=== PATIENT | female | born 1985 | race Hispanic/Latino ===

== ENCOUNTER 2020-03-04 08:00 | Observation (INO) | payer BC ==
[~2020-03-04] VITALS: Ht 165.1 cm; Wt 85.8 kg
[2020-03-10 13:08] LABS: BASOPHILS % (AUTO) 0.4 % (0.0-5.0); EOSINOPHILS % (AUTO) 0.9 % (0.0-8.0); HEMATOCRIT 42.3 % (36-48); LYMPHOCYTES % (AUTO) 26.9 % (21.0-51.0); MEAN CORPUSCULAR HEMOGLOBIN 28.8 pg (27.0-33.0); MEAN CORPUSCULAR HGB CONC 31.9 g/dL (32.0-36.0); MEAN CORPUSCULAR VOLUME 90.2 fL (79-99); MONOCYTES % (AUTO) 6.2 % (3.0-13.0); NEUTROPHILS % (AUTO) 65.4 % (40.0-77.0); PLATELET COUNT (AUTO) 267 K/uL (130-400); RED BLOOD CELL COUNT(AUTO) 4.69 MIL/uL (4.00-5.50); RED CELL DISTRIBUTION WIDTH 13.2 % (11.0-15.5); WHITE BLOOD COUNT (AUTO) 8.1 K/uL (4.8-10.8)
[2020-03-10 14:27] VITALS: BP 113/79
[2020-03-11] VITALS (24 sets, daily range): BP systolic 107–149; BP diastolic 66–92
[2020-03-11] MEDS ORDERED: LACTATED RINGERS 1000ML 1,000 ML IV ONE (05:56)
[2020-03-11] MEDS ORDERED: MIDAZOLAM HCL 1 MG/ML 2ML VIAL ONE (06:18)
[2020-03-11] MEDS ORDERED: ROCURONIUM 10MG/1ML SYR 10 MG/ML ML ONE (06:22)
[2020-03-11] MEDS ORDERED: PROPOFOL 10 MG/ML 20ML VIAL IV ONE (06:22)
[2020-03-11] MEDS ORDERED: SUCCINYLCHOLINE CHLORIDE 20 MG/ML 10 ML VIAL ONE (06:22)
[2020-03-11] MEDS ORDERED: LIDOCAINE PF 2% 5ML ABBOJECT ONE (06:22)
[2020-03-11] MEDS ORDERED: GLYCOPYRROLATE 1 MG/5 ML SYRINGE ONE (06:23)
[2020-03-11] MEDS ORDERED: NEOSTIGMINE 5MG/5ML SYR IV ONE (06:23)
[2020-03-11] MEDS ORDERED: ONDANSETRON HCL 4 MG/2 ML VIAL ONE (06:23)
[2020-03-11] MEDS ORDERED: FENTANYL CITRATE PF 50 MCG/1 ML 2ML VIAL ONE (06:23)
[2020-03-11] MEDS: CEFAZOLIN SODIUM 1 GM VIAL ONE ×2 (06:23→07:04)
[2020-03-11] MEDS ORDERED: KETAMINE 50MG/ML SYRINGE 50 MG/ML DISP.SYRIN IV ONE (06:52)
[2020-03-11] MEDS ORDERED: CEFAZOLIN SODIUM 1 GM VIAL IVP ONE (07:04)
[2020-03-11] MEDS ORDERED: MEPERIDINE-PF 25 MG/ML SYG ONE ×2 (08:32→08:45)
[2020-03-11] MEDS ORDERED: ONDANSETRON HCL 4 MG/2 ML VIAL IVP PRN (09:30)
[2020-03-11] MEDS ORDERED: BISACODYL 10 MG SUPP.RECT RC PRN (09:30)
[2020-03-11] MEDS ORDERED: PROMETHAZINE HCL 25 MG/ML 1ML AMPULE IM PRN (09:30)
[2020-03-11] MEDS: DEXTROSE 5 %-0.45 % NACL 1,000 ML IV PRN ×3 (09:36→23:18)
[2020-03-11] MEDS: PROMETHAZINE HCL 25 MG/ML 1ML AMPULE IM PRN ×2 (10:16→13:11)
[2020-03-11] MEDS: MEPERIDINE-PF 75 MG/ML SYG IM PRN ×2 (10:16→13:13)
[2020-03-11] MEDS: ACETAMINOPHEN-CODEINE 300/30MG TAB PO PRN ×2 (18:44→23:18)
[2020-03-11] MEDS: DOCUSATE SODIUM 100 MG CAP PO PRN (22:00)
[2020-03-11] MEDS: SIMETHICONE 80 MG TAB.CHEW PO PRN (22:01)
[2020-03-11] MEDS: IBUPROFEN 600 MG TABLET PO PRN (22:02)
[2020-03-12 03:35] VITALS: BP 106/59
[2020-03-12 06:35] LABS: HEMATOCRIT 40.3 % (36-48); MEAN CORPUSCULAR HEMOGLOBIN 28.8 pg (27.0-33.0); MEAN CORPUSCULAR HGB CONC 32.3 g/dL (32.0-36.0); MEAN CORPUSCULAR VOLUME 89.2 fL (79-99); RED BLOOD CELL COUNT(AUTO) 4.52 MIL/uL (4.00-5.50); RED CELL DISTRIBUTION WIDTH 13.2 % (11.0-15.5); WHITE BLOOD COUNT (AUTO) 13.3 K/uL (4.8-10.8)
[2020-03-12 07:36] VITALS: BP 103/64
--- NOTE | 2020-03-12 08:10 | NUR ---
DR. PAGE ROUNDING ON PATIENT. DISCHARGE INSTRUCTIONS EXPLAINED TO PATIENT. QUESTIONS INVITED AND ANSWERED.
[2020-03-12] MEDS: SIMETHICONE 80 MG TAB.CHEW PO PRN (09:10)
[2020-03-12] MEDS: DOCUSATE SODIUM 100 MG CAP PO PRN (09:10)
[2020-03-12] MEDS: IBUPROFEN 600 MG TABLET PO PRN (09:11)
--- NOTE | 2020-03-12 10:15 | NUR ---
PATIENT AMBULATING IN HALLWAY. NO C/O DIZZINESS, STEADY GAIT NOTED.
[2020-03-12 11:23] VITALS: BP 102/65
--- NOTE | 2020-03-12 11:35 | NUR ---
DISCHARGE INSTRUCTIONS READ AND EXPLAINED TO PATIENT. QUESTIONS INVITED AND ANSWERED. RX FOR TYLENOL #3 HANDED TO PATIENT.
--- NOTE | 2020-03-12 12:35 | NUR ---
PATIENT LEFT UNIT VIA WHEELCHAIR WITH BELONGINGS IN HAND. PERSONAL VEHICLE USED FOR TRANSPORTATION. NO COMPLAINS OR CONCERNS ADDRESSED FROM PATIENT ON DISCHARGE.
== END 2020-03-12 12:35 | disposition home or self-care (01) ==
LOC: DAHIP 03-11 05:30 → EDSTATUS 03-11 08:00 → WSH 03-11 09:30
PROVIDERS: ADMIT Obstetrics & Gynecology; ATTEND Obstetrics & Gynecology
DX: N92.1 Excessive and frequent menstruation with irregular cycle (principal); Z20.828 Contact with and (suspected) exposure to other viral communicable diseases; K46.9 Unspecified abdominal hernia without obstruction or gangrene
CPT/HCPCS: 36415 ×2; 58263; 84703; 85025; 85027; 86850; 86900; 86901; 96360; 96361 ×2; 96372; A4215; A4221; A4222; A4223; A4351; A4600; A4606; A4663; A4930; A6260; G0378 ×34; J0330; J0690 ×2; J2001; J2175 ×4; J2250; J2405; J2550 ×2; J2704; J2710; J3010; J3490 ×2; J7030; J7120 ×2; U0003